=== PATIENT | male | born 1985 | race Caucasian/White ===

== ENCOUNTER 2016-07-12 12:48 | Emergency (ER) | payer SELFPAY ==
[~2016-07-12] VITALS: Ht 172.7 cm; Wt 77.0 kg
[~2016-07-12 12:48] MED LIST: AMOXICILLIN500 MG OR; MOTRIN600 MG OR; NAPROSYN500 MG PO; NO MEDS; TYLENOL325 MG OR; ULTRAM50 M1 OR; ULTRAM50 MG OR; ZITHROMAX250 MG PO
[2016-07-12] MEDS ORDERED: AFRIN 12 HOUR0.05 % (13:34)
[2016-07-12] MEDS ORDERED: MOTRIN800 MG PO (13:34)
[2016-07-12] MEDS ORDERED: BACTRIM DS1 TAB PO (13:34)
[2016-07-12 13:42] VITALS: BP 113/76
== END 2016-07-12 13:43 | disposition home or self-care (01) | DRG 153 ==
LOC: ED 12:48
DX: J01.90 Acute sinusitis, unspecified (principal)

== ENCOUNTER 2017-01-24 22:11 | Emergency (ER) | payer SELFPAY ==
[~2017-01-24] VITALS: Ht 172.7 cm; Wt 80.0 kg
[~2017-01-24 22:11] MED LIST changes: +AFRIN 12 HOUR0.05 %; +BACTRIM DS1 TAB PO; +MOTRIN800 MG PO
[2017-01-24] MEDS ORDERED: MOTRIN800 MG PO (22:28)
[2017-01-24 22:52] VITALS: BP 138/91
== END 2017-01-24 22:52 | disposition home or self-care (01) | DRG 605 ==
LOC: ED 22:11
DX: S80.02XA Contusion of left knee, initial encounter (principal); M17.12 Unilateral primary osteoarthritis, left knee; M25.462 Effusion, left knee; W01.118A Fall on same level from slipping, tripping and stumbling with subsequent striking against other sharp object, initial encounter; Y93.9 Activity, unspecified; Y92.009 Unspecified place in unspecified non-institutional (private) residence as the place of occurrence of the external cause

== ENCOUNTER 2017-05-29 18:39 | Emergency (ER) | payer SELFPAY ==
[~2017-05-29] VITALS: Ht 172.7 cm; Wt 81.8 kg
[2017-05-29] MEDS ORDERED: PERCOCET 5/325M1 TAB PO (20:36)
[2017-05-29 21:09] VITALS: BP 127/79
== END 2017-05-29 21:09 | disposition home or self-care (01) | DRG 563 ==
LOC: ED 18:39
DX: S53.402A Unspecified sprain of left elbow, initial encounter (principal); M25.531 Pain in right wrist; M25.532 Pain in left wrist; W11.XXXA Fall on and from ladder, initial encounter; Y92.009 Unspecified place in unspecified non-institutional (private) residence as the place of occurrence of the external cause

== ENCOUNTER 2018-05-28 19:10 | Emergency (ER) | payer SELFPAY ==
[~2018-05-28] VITALS: Ht 172.7 cm; Wt 77.0 kg
[~2018-05-28 19:10] MED LIST changes: +PERCOCET 5/325M1 TAB PO
[2018-05-28] MEDS ORDERED: AMOXICILLIN500 MG PO (19:50)
[2018-05-28 19:54] VITALS: BP 112/71
== END 2018-05-28 19:54 | disposition home or self-care (01) | DRG 603 ==
LOC: ED 19:10
DX: L03.011 Cellulitis of right finger (principal)